=== PATIENT | female | born 1970 ===

== ENCOUNTER 2017-06-18 14:38 | Inpatient (IN) | payer OTHER ==
--- NOTE | 2017-06-18 15:39 | ED PDOC ---
HPI: General Adult Time Seen by Provider: 06/18/17 15:21 Chief Complaint (Nursing): Shortness Of Breath Chief Complaint (Provider): Right arm weakness, headache History Per: Patient History/Exam Limitations: no limitations Onset/Duration Of Symptoms: Hrs Have you had recent travel within the past 21 days to any of the following countries: [place], [place], [place] or [place]?: No Current Symptoms Are (Timing): Still Present Additional History Per: Patient Additional Complaint(s): The patient is a 46yo female with no known past medical history, presents to the ED for evaluation of sudden onset headache and right arm weakness starting 2 hours prior to arrival. Patient reports the weakness in her right arm persists but the headache resolved 5/10 minutes after onset. Patient states she is able to move her arm but still feels mild numbness and weakness; she also reports her right arm is tremulous. She reports associated nausea but contrary to triage note, denies any shortness of breath or chest pain. Patient offers no additional medical complaints. NIHSS Stroke Scale - Date/Time Evaluation Performed Date Performed: 06/18/17 Time Performed: 15:15 When Was NIHSS Performed: Baseline - How Severe is the Stroke Level of Consciousness: 0=Alert LOC to Questions: 0=Both comments correct LOC to commands: 0=Obeys both correctly Best Gaze: 0=Normal Visual: 0=No visual loss Facial: 0=Normal Motor Arm - Left: 0=No drift Motor Arm - Right: 0=No drift Motor Leg - Left: 0=No drift Motor Leg - Right: 0=No drift Limb Ataxia: 0=Absent Sensory: 0=Normal Best Language: 0=No aphasia Dysarthia: 0=Normal articulation Extinction & Inattention (Neglect): 0=Normal, no object Score: 0 Past Medical History Reviewed: Historical Data, Nursing Documentation, Vital Signs Vital Signs: Last Vital Signs Temp 97.9 F 06/20/17 13:00 Pulse 61 06/20/17 13:00 Resp 18 06/20/17 13:00 BP 110/69 06/20/17 13:00 Pulse Ox 97 06/20/17 13:00 - Medical History PMH: No Chronic Diseases, Diabetes (borderline, not currently on medications) - Surgical History Surgical History: - Family History Family History: States: No Known Family Hx, Unknown Family Hx - Social History Current smoker - smoking cessation education provided: No Alcohol: None Drugs: Denies - Home Medications Home Medications: Ambulatory Orders Medication Instructions Recorded [place]-3 Fatty Acids [[place]-3] 2,000 mg PO BID 06/18/17 Cholecalciferol [Vitamin D 1000 IU] 2,000 iu PO DAILY #60 tab 06/20/17 - Allergies Allergies/Adverse Reactions: Allergies Allergy/AdvReac Type Severity Reaction Status Date / Time No Known Allergies Allergy Unverified 05/02/13 11:21 Review of Systems ROS Statement: Except As Marked, All Systems Reviewed And Found Negative Cardiovascular: Negative for: Chest Pain Respiratory: Negative for: Shortness of Breath Gastrointestinal: Positive for: Nausea Musculoskeletal: Positive for: Other (right arm weakness, numbness and tremulous ) Neurological: Positive for: Headache (now resolved) Physical Exam - Reviewed Nursing Documentation Reviewed: Yes Vital Signs Reviewed: Yes - Physical Exam Appears: Positive for: Non-toxic, In Acute Distress Head Exam: Positive for: ATRAUMATIC, NORMOCEPHALIC Skin: Positive for: Warm, Dry Eye Exam: Positive for: EOMI, PERRL ENT: Positive for: Pharynx Is (clear). Negative for: Tonsillar Exudate Neck: Positive for: Painless ROM, Supple Cardiovascular/Chest: Positive for: Regular Rate, Rhythm. Negative for: Murmur Respiratory: Positive for: Normal Breath Sounds. Negative for: Accessory Muscle Use, Wheezing, Respiratory Distress Gastrointestinal/Abdominal: Positive for: Soft. Negative for: Tenderness, Mass , Distended, Guarding Back: Positive for: Normal Inspection. Negative for: Vertebral Tenderness Extremity: Positive for: Normal ROM. Negative for: Pedal Edema, Deformity Lymphatic: Negative for: Adenopathy Neurologic/Psych: Positive for: Alert, media relations coordinator II-XII (intact), Oriented (x3), Mood/ Affect (anxious), Cerebellar Tests (normal). Negative for: Motor/Sensory Deficits, Aphasia - Laboratory Results Result Diagrams: 06/18/17 16:00 06/20/17 05:25 - ECG O2 Sat by Pulse Oximetry: 99 Medical Decision Making Medical Decision Making: Impression: 46yo female with transient right arm weakness, headache Differential: TIA, migraine, anxiety, cervical radiculopathy Plan: -- Labs -- CT Head -- Chest XR Accession No. : [id number] Patient Name / ID : LINNEA ALEXANDER / [id number] Exam Date : 06/18/2017 16:33:46 ( Approved ) Study Comment : Sex / Age : F / 46Y Creator : MARTIN JONES MD Dictator : MARTIN JONES MD Board Certified Family Physician : Manager Presentation : MARTIN JONES MD Approver2 : Report Date : 06/18/2017 16:45:03 My Comment : PROCEDURE: CT HEAD WITHOUT CONTRAST. HISTORY: posterior headache transient RIGHT arm weakness COMPARISON: None available. TECHNIQUE: Axial computed tomography images were obtained through the head/brain without intravenous contrast. Radiation dose: Total exam DLP = 840.63 mGy-cm. This CT exam was performed using one or more of the following dose reduction techniques: Automated exposure control, adjustment of the mA and/or kV according to patient size, and/or use of iterative reconstruction technique. FINDINGS: HEMORRHAGE: No intracranial hemorrhage. BRAIN: [place]-white matter differentiation is preserved. There is no mass, mass effect or abnormal extra-axial fluid collection. VENTRICLES: The ventricles are normal in size, shape and configuration. CALVARIUM: The skull base and calvarium are normal. PARANASAL SINUSES: There is moderate mucoperiosteal thickening in the ethmoid air cells and mild mucosal disease in the frontal and maxillary sinuses. MASTOID AIR CELLS: Predominantly clear. OTHER FINDINGS: None. IMPRESSION: No acute intracranial abnormality. If there is a persistent focal neurologic deficit and an ongoing clinical concern for acute infarction, an MRI of the brain without intravenous contrast would be a more sensitive modality for evaluation of hyperacute/acute ischemic infarction. 1700 Labs reviewed and show high cholesterol and high triglycerides. Patient to be admitted for workup of TIA and possible MS. Labs nd CT findings discussed with patient, as well as plan for admission and patient agrees. Case discussed with Dr. Hines, neurologist internal controls manager. Case discussed with Dr. Rivera, family practice resident. Scribe Attestation: Documented by Lucia Quezada, acting as a scribe for Martha Mireles MD. Provider Scribe Attestation: All medical record entries made by the Scribe were at my direction and personally dictated by me. I have reviewed the chart and agree that the record accurately reflects my personal performance of the history, physical exam, medical decision making, and the department course for this patient. I have also personally directed, reviewed, and agree with the discharge instructions and disposition. Disposition - Clinical Impression Clinical Impression: Weakness of right arm, Headache Counseled Patient/Family Regarding: Studies Performed, Diagnosis - Disposition Disposition Time: 17:00 Condition: FAIR - Pt Status Changed To: Hospital Disposition Of: Observation - POA Present On Arrival: None
[2017-06-18 16:44] LABS: BASO % 0.5 % (0.0-2.0); EOS # 0.2 K/uL (0.0-0.7); EOS % 3.1 % (0.0-4.0); HEMATOCRIT 37.7 % (34.0-47.0); MEAN CELL VOLUME 92.5 fl (81.0-99.0); MEAN CORPUSCULAR HGB CONC 33.5 g/dL (33.0-37.0); MEAN PLATELET VOLUME 9.3 fl (7.2-11.7); MONO # 0.6 K/uL (0.0-0.8); MONO % 8.2 % (0.0-10.0); NEUT # 3.1 K/uL (1.8-7.0); NEUT % 45.2 % (50.0-75.0); NRBC % 0.1 % (0.0-0.0); RED CELL DISTRIBUTION WIDTH 13.5 % (11.5-14.5); WHITE BLOOD COUNT 6.9 K/uL (4.8-10.8)
--- NOTE | 2017-06-18 16:46 | CT ---
PROCEDURE: CT HEAD WITHOUT CONTRAST. HISTORY: posterior headache transient RIGHT arm weakness COMPARISON: None available. TECHNIQUE: Axial computed tomography images were obtained through the head/brain without intravenous contrast. Radiation dose: Total exam DLP = 840.63 mGy-cm. This CT exam was performed using one or more of the following dose reduction techniques: Automated exposure control, adjustment of the mA and/or kV according to patient size, and/or use of iterative reconstruction technique. FINDINGS: HEMORRHAGE: No intracranial hemorrhage. BRAIN: [place]-white matter differentiation is preserved. There is no mass, mass effect or abnormal extra-axial fluid collection. VENTRICLES: The ventricles are normal in size, shape and configuration. CALVARIUM: The skull base and calvarium are normal. PARANASAL SINUSES: There is moderate mucoperiosteal thickening in the ethmoid air cells and mild mucosal disease in the frontal and maxillary sinuses. MASTOID AIR CELLS: Predominantly clear. OTHER FINDINGS: None. IMPRESSION: No acute intracranial abnormality. If there is a persistent focal neurologic deficit and an ongoing clinical concern for acute infarction, an MRI of the brain without intravenous contrast would be a more sensitive modality for evaluation of hyperacute/acute ischemic infarction.
[2017-06-18 16:51] LABS: PARTIAL THROMBOPLASTIN TIME 32.5 Seconds (25.6-37.1)
[2017-06-18 16:53] LABS: ALB/GLOB RATIO 1.2 (1.0-2.1); ALKALINE PHOSPHATASE 89 U/L (38-126); ALT/SGPT 53 U/L (9-52); AST/SGOT 32 U/L (14-36); BILIRUBIN,TOTAL 0.3 mg/dl (0.2-1.3); CALCIUM 9.3 mg/dL (8.4-10.2); CARBON DIOXIDE 26 mmol/L (22-30); CHLORIDE 104 mmol/L (98-107); CHOLESTEROL 201 mg/dL (0-199); GFR AFRICAN-AMERICAN > 60; GLUCOSE,RANDOM 92 mg/dL (65-105); POTASSIUM 3.8 MMOL/L (3.6-5.0); SODIUM 144 mmol/l (132-148)
[2017-06-18 17:01] LABS: URINE BILIRUBIN NEGATIVE (NEGATIVE); URINE BLOOD SMALL (NEGATIVE); URINE COLOR YELLOW (YELLOW); URINE GLUCOSE (UA) NEG (Normal); URINE KETONE NEGATIVE (NEGATIVE); URINE LEUKOCYTE ESTERASE NEG Leu/uL (Negative); URINE PROTEIN NEGATIVE (NEGATIVE); URINE UROBILINOGEN 0.2-1.0 mg/dL (0.2-1.0); WBC URINE 1 /hpf (0-5)
[2017-06-18 17:08] LABS: RBC URINE 15 /hpf (0-3)
[2017-06-18 17:17] LABS: BLOOD UREA NITROGEN 14 mg/dl (7-17)
--- NOTE | 2017-06-18 17:53 | RAD ---
PROCEDURE: CHEST RADIOGRAPH, 1 VIEW HISTORY: headache weakness COMPARISON: None available. FINDINGS: LUNGS: The lungs are well inflated and clear. PLEURA: No pneumothorax or pleural fluid seen. CARDIOVASCULAR: Normal. OSSEOUS STRUCTURES: No significant abnormalities. VISUALIZED UPPER ABDOMEN: Normal. OTHER FINDINGS: None. IMPRESSION: No active pulmonary disease.
[2017-06-18] MEDS ORDERED: Dextrose 50% SYRINGE Inj (50 ml) IV PRN (18:01)
[2017-06-18] MEDS ORDERED: Glucagon Recombinant 1 mg Inj IM PRN (18:01)
--- NOTE | 2017-06-18 18:05 | CP.PCM.HP ---
History of Present Illness - History of Present Illness History of Present Illness: Pt is a 46 y/o female who declines any medical problems but is on metformin, presents to the ED for evaluation of sudden onset headache and right arm weakness starting 2 hours prior to presenting to ED. Patient reports the weakness in her right arm persists but the headache resolved about 10 minutes after it started. Pt is able to move her arm but still feels mild numbness and weakness and feels shakey and heavy. Pt does not have any symptoms denies any chest pain, sob, fever, chills, dizziness, visual changes, abdominal pain or change in bowel habits. PMD: Visit [facility] once in 06/2016, but never return. But seem to be following a different doctor as pt has had multiple labs done in February and March 2017 that does not correlate to an ED visit Present on Admission - Present on Admission Any Indicators Present on Admission: No Review of Systems - Review of Systems All systems: reviewed and no additional remarkable complaints except Past Patient History - Infectious Disease Hx of Infectious Diseases: None - Past Social History Alcohol: None Drugs: Denies - PSYCHIATRIC Hx Substance Use: No - SURGICAL HISTORY Hx Surgeries: Yes Hx Section: Yes Meds Allergies/Adverse Reactions: Allergies Allergy/AdvReac Type Severity Reaction Status Date / Time No Known Allergies Allergy Unverified 05/02/13 11:21 Physical Exam - Constitutional Appears: Non-toxic, No Acute Distress - Head Exam Head Exam: NORMOCEPHALIC - Eye Exam Eye Exam: Normal appearance, PERRL Pupil Exam: NORMAL ACCOMODATION - ENT Exam ENT Exam: Mucous Membranes Moist - Respiratory Exam Respiratory Exam: Clear to Auscultation Bilateral, NORMAL BREATHING PATTERN. absent: Rhonchi, Wheezes - Cardiovascular Exam Cardiovascular Exam: REGULAR RHYTHM, +S1, +S2 - GI/Abdominal Exam GI & Abdominal Exam: Normal Bowel Sounds, Soft. absent: Tenderness - Extremities Exam Extremities exam: Negative for: calf tenderness, joint swelling, pedal edema - Neurological Exam Neurological exam: Alert, CN II-XII Intact, Oriented x3, Reflexes Normal - Expanded Neurological Exam Expanded Cerebellar Function: Finger to Nose: Normal Sensory exam: Lower Extremity 2 Point Discrimination: Normal Neuro motor strength exam: Left Upper Extremity: 5, Right Upper Extremity: 5, Left Lower Extremity: 5, Right Lower Extremity: 5 DTR: Achilles Tendon Left: 2+, Achilles Tendon Right: 2+, Brachioradialis Left: 2+, Brachioradialis Right: 2+, Patellar Left: 2+, Patellar Right: 2+ Results - Vital Signs Recent Vital Signs: Last Vital Signs Temp 97 F L 06/18/17 14:46 Pulse 78 06/18/17 16:00 Resp 14 06/18/17 16:00 BP 128/75 06/18/17 16:00 Pulse Ox 99 06/18/17 17:30 - Labs Result Diagrams: 06/18/17 16:00 06/18/17 16:35 Labs: Laboratory Results - last 24 hr 06/18/17 06/18/17 06/18/17 16:00 16:00 16:00 WBC 6.9 RBC 4.07 Hgb 12.6 Hct 37.7 MCV 92.5 MCH 31.0 MCHC 33.5 RDW 13.5 Plt Count 253 MPV 9.3 Neut % (Auto) 45.2 L Lymph % (Auto) 43.0 H [place] % (Auto) 8.2 Eos % (Auto) 3.1 Baso % (Auto) 0.5 Neut # 3.1 Lymph # 3.0 [place] # 0.6 Eos # 0.2 Baso # 0.0 PT 10.8 INR 1.1 APTT 32.5 Sodium Potassium Chloride Carbon Dioxide Anion Gap BUN Creatinine Est GFR ( Amer) Est GFR (Non-Af Amer) Random Glucose Calcium Total Bilirubin AST ALT Alkaline Phosphatase Troponin I Total Protein Albumin Globulin Albumin/Globulin Ratio Triglycerides Cholesterol LDL Cholesterol Direct HDL Cholesterol Urine Color Urine Clarity Urine pH Ur Specific [place] Urine Protein Urine Glucose (UA) Urine Ketones Urine Blood Urine Nitrate Urine Bilirubin Urine Urobilinogen Ur Leukocyte Esterase Urine RBC (Auto) Urine Microscopic WBC Ur Squamous Epith Cells Urine Opiates Screen Urine Methadone Screen Ur Barbiturates Screen Ur Phencyclidine Scrn Ur Amphetamines Screen U Benzodiazepines Scrn U Oth Cocaine Metabols U Cannabinoids Screen Blood Type O POSITIVE Antibody Screen Negative BBK History Checked Patient has bt 06/18/17 06/18/17 06/18/17 16:00 16:35 16:35 WBC RBC Hgb Hct MCV MCH MCHC RDW Plt Count MPV Neut % (Auto) Lymph % (Auto) [place] % (Auto) Eos % (Auto) Baso % (Auto) Neut # Lymph # [place] # Eos # Baso # PT INR APTT Sodium 144 Potassium 3.8 Chloride 104 Carbon Dioxide 26 Anion Gap 18 BUN 14 Creatinine 0.7 Est GFR ( Amer) > 60 Est GFR (Non-Af Amer) > 60 Random Glucose 92 Calcium 9.3 Total Bilirubin 0.3 AST 32 ALT 53 H D Alkaline Phosphatase 89 Troponin I < 0.0120 Total Protein 8.0 Albumin 4.3 Globulin 3.6 Albumin/Globulin Ratio 1.2 Triglycerides 187 H Cholesterol 201 H LDL Cholesterol Direct 134 H HDL Cholesterol 39 Urine Color Yellow Urine Clarity Clear Urine pH 7.0 Ur Specific [place] 1.017 Urine Protein Negative Urine Glucose (UA) Neg Urine Ketones Negative Urine Blood Small Urine Nitrate Negative Urine Bilirubin Negative Urine Urobilinogen 0.2-1.0 Ur Leukocyte Esterase Neg Urine RBC (Auto) 15 H Urine Microscopic WBC 1 Ur Squamous Epith Cells 3 Urine Opiates Screen Negative Urine Methadone Screen Negative Ur Barbiturates Screen Negative Ur Phencyclidine Scrn Negative Ur Amphetamines Screen Negative U Benzodiazepines Scrn Negative U Oth Cocaine Metabols Negative U Cannabinoids Screen Negative Blood Type Antibody Screen BBK History Checked Assessment & Plan - Assessment and Plan (Free Text) Assessment: 46 y/o female with pmhx of type II diabetes being admitted for TIA Plan: 1. TIA admit to tele pt started on Aspirin 81mg daily lipid panel border line elevated cbc wnl. cmp wnl EKG no concerning changes CT negative for hemorrhage Of note: through chart review, pt had TSH levels drawn 02/2017 and 03/2017 for which the results are as follows TSH - 5.16 (03/17/17) TSH- 5.38 (04/20/17) , given these results TSH + T4 has been ordered, f/u There is no evidence pt was on thyroid medication and it is not clear who ordered the previous TSH Neurology consulted by ED physician, f/u recommendations 2. Non-Insulin Dependent Diabetic- Controlled Last A1C 6.4 (02/2017) A1C ordered by ED physician f/u results Pt on Metformin 500mg QPM ACHS low SSI Hepatic panel - Negative (04/20/17) 3. Diet- Diabetic Heart Healthy 4. DVT prophylaxis- Lovenox 40mg daily
[2017-06-18] MEDS: Insulin Regular 100 units/ml SC SCH (22:16)
[2017-06-19 06:11] LABS: T4 6.48 ug/dl (5.5-11.0)
[2017-06-19 06:25] LABS: THYROID STIMULATING HORMONE 10.6 mIU/ML (0.46-4.68)
[2017-06-19] MEDS: Insulin Regular 100 units/ml SC SCH ×4 (07:37→22:37)
--- NOTE | 2017-06-19 08:46 | CP.PCM.PN ---
Subjective - Date & Time of Evaluation Date of Evaluation: 06/19/17 Time of Evaluation: 08:30 - Subjective Subjective: Pt seen and examined this morning. Pt reports her occipital headache has improved. Reports some weakness in right arm but denies numbness or tingling. Denies chest pain, dizziness, blurry vision, nausea, vomiting, bowel/bladder dysfunction and any other focal deficit. Denies any hx similar headache in the past. Denies hx migraine. Tolerating PO food and fluids. Has normal BM and voiding. Objective - Vital Signs/Intake and Output Vital Signs (last 24 hours): Temp Pulse Resp BP Pulse Ox 97.0 F L 52 L 16 109/64 96 06/18/17 18:51 06/19/17 05:32 06/19/17 05:32 06/19/17 05:32 06/19/17 05:32 - Medications Medications: Current Medications Aspirin (Aspirin Chewable) 81 mg PO DAILY [facility] Atorvastatin Calcium (Lipitor) 40 mg PO DAILY [facility] Dextrose (Dextrose 50% Inj) 0 ml IV STAT PRN; Protocol PRN Reason: Hyglycemia Protocol Dextrose (Glutose 15) 0 gm PO ONCE PRN; Protocol PRN Reason: Hypoglycemia Protocol Enoxaparin Sodium (Lovenox) 40 mg SC DAILY [facility] PRN Reason: Protocol Glucagon (Glucagen Diagnostic Kit) 0 mg IM STAT PRN; Protocol PRN Reason: Hypoglycemia Protocol Insulin Human Regular (Humulin R) 0 units SC ACHS [facility] PRN Reason: Protocol Last Admin: 06/19/17 07:37 Dose: Not Given Metformin HCl (Glucophage) 500 mg PO QPM [facility] Last Admin: 06/18/17 19:24 Dose: 500 mg - Labs Labs: 06/18/17 16:00 06/18/17 16:35 PT 10.8 Seconds (9.8-13.1) 06/18/17 16:00 INR 1.1 (0.9-1.2) 06/18/17 16:00 APTT 32.5 Seconds (25.6-37.1) 06/18/17 16:00 - Constitutional Appears: Well, No Acute Distress - Head Exam Head Exam: ATRAUMATIC, NORMAL INSPECTION - ENT Exam ENT Exam: Mucous Membranes Moist - Neck Exam Neck Exam: Normal Inspection - Respiratory Exam Respiratory Exam: Clear to Ausculation Bilateral. absent: Rales, Rhonchi, Wheezes - Cardiovascular Exam Cardiovascular Exam: REGULAR RHYTHM, RRR, +S1, +S2 - GI/Abdominal Exam GI & Abdominal Exam: Soft, Normal Bowel Sounds. absent: Tenderness - Extremities Exam Extremities Exam: Normal Capillary Refill, Normal Inspection. absent: Calf Tenderness, Pedal Edema - Neurological Exam Neurological Exam: Alert, Awake, CN II-XII Intact, Normal Gait, Oriented x3, Reflexes Normal. absent: Motor Sensory Deficit Neuro motor strength exam: Left Upper Extremity: 5, Right Upper Extremity: 5, Left Lower Extremity: 5, Right Lower Extremity: 5 - Psychiatric Exam Psychiatric exam: Normal Affect, Normal Mood Assessment and Plan - Assessment and Plan (Free Text) Assessment: Assessment and plan: 46 yo female PMH DMII is admitted to telemetry for headache and right arm weakness. 1. TIA vs. complicated mirgraine -Continue Aspirin 81 mg PO daily -Start atorvastatin 40 mg PO daily( will cont. until MRI report) -lipid panel:TC 201, TG 187, LDL 134, HDL 39. -EKG no concerning changes -CT HEAD: No acute intracranial abnormality. -Neurology consult appreciated and f/u recommendation. -F/U MRI of brain -F/U MRA head/neck -PT/OT eval. -f/u vitamin D, folate and B12. 2. Non-Insulin Dependent Diabetic- Controlled -HbA1C: 6.1 on 06/18/17 -HbA1C: 6.4 on 02/2017 -Hold Metformin 500mg QPM -AC[facility] -low SSI 3. Elevated TSH: -no hx hypothyroidism. -TSH 10.6 and T4 is 6.48 on 06/19/17 -f/u free T4. -TSH- 5.38 on 04/20/17 Hepatic panel - Negative (04/20/17) 4. DVT prophylaxis - Lovenox 40mg daily 5. Diet -Diabetic Heart Healthy
[2017-06-19] MEDS: Enoxaparin 40 mg Syringe SC SCH (09:12)
--- NOTE | 2017-06-19 13:35 | CP.PCM.CON ---
History of Present Illness - History of Present Illness History of Present Illness: Mrs. Farrell is a 46-year-old woman with a past medical history of diabetes, who states that she developed on occipital headache, that has a quality of pulsations and was associated with nausea. The headache, was severe at first, but today is improved. She became concerned when she developed right upper extremity numbness and weakness. As a result, she presented to the ED. She had an initial NIHSS of 0. She had a subjective numbness on the right side, but no focal neurologic deficits otherwise. Today, she denies nausea, vomiting , visual changes, chest pain, SOB, new weakness or any other associated symptoms. Her headache remains, but is moderate in severity. She has not received any pain medication today. Review of Systems - Review of Systems All systems: reviewed and no additional remarkable complaints except Past Patient History - Infectious Disease Hx of Infectious Diseases: None - Past Social History Alcohol: None Drugs: Denies - CARDIAC Hx Cardiac Disorders: No - PULMONARY Hx Respiratory Disorders: No - NEUROLOGICAL Hx Neurological Disorder: No - HEENT Hx HEENT Problems: No - RENAL Hx Chronic Kidney Disease: No - ENDOCRINE/METABOLIC Hx Endocrine Disorders: Yes - HEMATOLOGICAL/ONCOLOGICAL Hx Blood Disorders: No - INTEGUMENTARY Hx Dermatological Problems: No - MUSCULOSKELETAL/RHEUMATOLOGICAL Hx Musculoskeletal Disorders: No - GASTROINTESTINAL Hx Gastrointestinal Disorders: No - GENITOURINARY/GYNECOLOGICAL Hx Genitourinary Disorders: No - PSYCHIATRIC Hx Substance Use: No - SURGICAL HISTORY Hx Surgeries: Yes Hx Section: Yes - ANESTHESIA Hx Anesthesia: No Meds Allergies/Adverse Reactions: Allergies Allergy/AdvReac Type Severity Reaction Status Date / Time No Known Allergies Allergy Unverified 05/02/13 11:21 - Medications Medications: Current Medications Aspirin (Aspirin Chewable) 81 mg PO DAILY [facility] Last Admin: 06/19/17 09:12 Dose: 81 mg Atorvastatin Calcium (Lipitor) 40 mg PO DAILY [facility] Last Admin: 06/19/17 09:12 Dose: 40 mg Dextrose (Dextrose 50% Inj) 0 ml IV STAT PRN; Protocol PRN Reason: Hyglycemia Protocol Dextrose (Glutose 15) 0 gm PO ONCE PRN; Protocol PRN Reason: Hypoglycemia Protocol Enoxaparin Sodium (Lovenox) 40 mg SC DAILY [facility] PRN Reason: Protocol Last Admin: 06/19/17 09:12 Dose: 40 mg Glucagon (Glucagen Diagnostic Kit) 0 mg IM STAT PRN; Protocol PRN Reason: Hypoglycemia Protocol Insulin Human Regular (Humulin R) 0 units SC ACHS [facility] PRN Reason: Protocol Last Admin: 06/19/17 07:37 Dose: Not Given Metformin HCl (Glucophage) 500 mg PO QPM [facility] Last Admin: 06/18/17 19:24 Dose: 500 mg Physical Exam - Constitutional Appears: Well - Head Exam Head Exam: ATRAUMATIC, NORMAL INSPECTION, NORMOCEPHALIC - Eye Exam Eye Exam: EOMI, Normal appearance, PERRL Pupil Exam: PERRL - ENT Exam ENT Exam: Mucous Membranes Moist, Normal Exam - Neck Exam Neck exam: Positive for: Normal Inspection - Respiratory Exam Respiratory Exam: Clear to Auscultation Bilateral, NORMAL BREATHING PATTERN - Cardiovascular Exam Cardiovascular Exam: REGULAR RHYTHM, +S1, +S2 - GI/Abdominal Exam GI & Abdominal Exam: Normal Bowel Sounds, Soft. absent: Tenderness - Rectal Exam Rectal Exam: Deferred - Extremities Exam Extremities exam: Positive for: normal inspection Additional comments: complains of pain in left calf, no erythema, or tenderness to palpation. - Back Exam Back exam: NORMAL INSPECTION - Neurological Exam Neurological exam: Alert, CN II-XII Intact, Normal Gait, Oriented x3, Reflexes Normal - Expanded Neurological Exam Expanded Patient oriented to: person, place, time Cranial nerves: EOM's Intact: Normal, Facial Sensation: Normal Ataxia: No Cerebellar Function: Finger to Nose: Normal Upper motor neuron: Pronator Drift: Normal Sensory exam: Lower Extremity Light Touch: Normal, Lower Extremity Pin Prick: Normal, Upper Extremity 2 Point Discrimination: Normal, Upper Extremity Light Touch: Normal Neuro motor strength exam: Left Upper Extremity: 5, Right Upper Extremity: 5, Left Lower Extremity: 5, Right Lower Extremity: 5 DTR: Achilles Tendon Left: 2+, Achilles Tendon Right: 2+, Bicep Left: 2+, Bicep Right: 2+, Brachioradialis Left: 2+, Brachioradialis Right: 2+, Patellar Left: 2 +, Patellar Right: 2+, Tricep Left: 2+, Tricep Right: 2+ - Psychiatric Exam Psychiatric exam: Normal Affect, Normal Mood - Skin Skin Exam: Dry, Intact, Normal Color, Warm Results - Vital Signs Recent Vital Signs: Last Vital Signs Temp 98.2 F 06/19/17 12:00 Pulse 56 L 09/26/17 12:00 Resp 18 06/19/17 12:00 BP 106/65 06/19/17 12:00 Pulse Ox 100 06/19/17 12:00 - Labs Result Diagrams: 06/18/17 16:00 06/18/17 16:35 Labs: Laboratory Results - last 24 hr 06/18/17 06/18/17 06/18/17 15:27 16:00 16:00 WBC 6.9 RBC 4.07 Hgb 12.6 Hct 37.7 MCV 92.5 MCH 31.0 MCHC 33.5 RDW 13.5 Plt Count 253 MPV 9.3 Neut % (Auto) 45.2 L Lymph % (Auto) 43.0 H Towns % (Auto) 8.2 Eos % (Auto) 3.1 Baso % (Auto) 0.5 Neut # 3.1 Lymph # 3.0 Towns # 0.6 Eos # 0.2 Baso # 0.0 PT INR APTT Sodium Potassium Chloride Carbon Dioxide Anion Gap BUN Creatinine Est GFR ( Amer) Est GFR (Non-Af Amer) POC Glucose (mg/dL) 146 H Random Glucose Hemoglobin A1c 6.2 Calcium Total Bilirubin AST ALT Alkaline Phosphatase Troponin I Total Protein Albumin Globulin Albumin/Globulin Ratio Triglycerides Cholesterol LDL Cholesterol Direct HDL Cholesterol Thyroxine (T4) TSH 3rd Generation Urine Color Urine Clarity Urine pH Ur Specific [place] Urine Protein Urine Glucose (UA) Urine Ketones Urine Blood Urine Nitrate Urine Bilirubin Urine Urobilinogen Ur Leukocyte Esterase Urine RBC (Auto) Urine Microscopic WBC Ur Squamous Epith Cells Urine Opiates Screen Urine Methadone Screen Ur Barbiturates Screen Ur Phencyclidine Scrn Ur Amphetamines Screen U Benzodiazepines Scrn U Oth Cocaine Metabols U Cannabinoids Screen Blood Type Antibody Screen BBK History Checked 06/18/17 06/18/17 06/18/17 16:00 16:00 16:00 WBC RBC Hgb Hct MCV MCH MCHC RDW Plt Count MPV Neut % (Auto) Lymph % (Auto) [place] % (Auto) Eos % (Auto) Baso % (Auto) Neut # Lymph # Towns # Eos # Baso # PT 10.8 INR 1.1 APTT 32.5 Sodium Potassium Chloride Carbon Dioxide Anion Gap BUN Creatinine Est GFR ( Amer) Est GFR (Non-Af Amer) POC Glucose (mg/dL) Random Glucose Hemoglobin A1c Calcium Total Bilirubin AST ALT Alkaline Phosphatase Troponin I Total Protein Albumin Globulin Albumin/Globulin Ratio Triglycerides Cholesterol LDL Cholesterol Direct HDL Cholesterol Thyroxine (T4) TSH 3rd Generation Urine Color Yellow Urine Clarity Clear Urine pH 7.0 Ur Specific [place] 1.017 Urine Protein Negative Urine Glucose (UA) Neg Urine Ketones Negative Urine Blood Small Urine Nitrate Negative Urine Bilirubin Negative Urine Urobilinogen 0.2-1.0 Ur Leukocyte Esterase Neg Urine RBC (Auto) 15 H Urine Microscopic WBC 1 Ur Squamous Epith Cells 3 Urine Opiates Screen Urine Methadone Screen Ur Barbiturates Screen Ur Phencyclidine Scrn Ur Amphetamines Screen U Benzodiazepines Scrn U Oth Cocaine Metabols U Cannabinoids Screen Blood Type O POSITIVE Antibody Screen Negative BBK History Checked Patient has bt 06/18/17 06/18/17 06/18/17 16:35 16:35 21:25 WBC RBC Hgb Hct MCV MCH MCHC RDW Plt Count MPV Neut % (Auto) Lymph % (Auto) [place] % (Auto) Eos % (Auto) Baso % (Auto) Neut # Lymph # Town[place] # Eos # Baso # PT INR APTT Sodium 144 Potassium 3.8 Chloride 104 Carbon Dioxide 26 Anion Gap 18 BUN 14 Creatinine 0.7 Est GFR ( Amer) > 60 Est GFR (Non-Af Amer) > 60 POC Glucose (mg/dL) 94 Random Glucose 92 Hemoglobin A1c Calcium 9.3 Total Bilirubin 0.3 AST 32 ALT 53 H D Alkaline Phosphatase 89 Troponin I < 0.0120 Total Protein 8.0 Albumin 4.3 Globulin 3.6 Albumin/Globulin Ratio 1.2 Triglycerides 187 H Cholesterol 201 H LDL Cholesterol Direct 134 H HDL Cholesterol 39 Thyroxine (T4) TSH 3rd Generation Urine Color Urine Clarity Urine pH Ur Specific [place] Urine Protein Urine Glucose (UA) Urine Ketones Urine Blood Urine Nitrate Urine Bilirubin Urine Urobilinogen Ur Leukocyte Esterase Urine RBC (Auto) Urine Microscopic WBC Ur Squamous Epith Cells Urine Opiates Screen Negative Urine Methadone Screen Negative Ur Barbiturates Screen Negative Ur Phencyclidine Scrn Negative Ur Amphetamines Screen Negative U Benzodiazepines Scrn Negative U Oth Cocaine Metabols Negative U Cannabinoids Screen Negative Blood Type Antibody Screen BBK History Checked 06/19/17 06/19/17 06/19/17 05:30 12:18 13:12 WBC RBC Hgb Hct MCV MCH MCHC RDW Plt Count MPV Neut % (Auto) Lymph % (Auto) [place] % (Auto) Eos % (Auto) Baso % (Auto) Neut # Lymph # Towns # Eos # Baso # PT INR APTT Sodium Potassium Chloride Carbon Dioxide Anion Gap BUN Creatinine Est GFR ( Amer) Est GFR (Non-Af Amer) POC Glucose (mg/dL) 55 L 112 H Random Glucose Hemoglobin A1c Calcium Total Bilirubin AST ALT Alkaline Phosphatase Troponin I Total Protein Albumin Globulin Albumin/Globulin Ratio Triglycerides Cholesterol LDL Cholesterol Direct HDL Cholesterol Thyroxine (T4) 6.48 TSH 3rd Generation 10.60 H Urine Color Urine Clarity Urine pH Ur Specific [place] Urine Protein Urine Glucose (UA) Urine Ketones Urine Blood Urine Nitrate Urine Bilirubin Urine Urobilinogen Ur Leukocyte Esterase Urine RBC (Auto) Urine Microscopic WBC Ur Squamous Epith Cells Urine Opiates Screen Urine Methadone Screen Ur Barbiturates Screen Ur Phencyclidine Scrn Ur Amphetamines Screen U Benzodiazepines Scrn U Oth Cocaine Metabols U Cannabinoids Screen Blood Type Antibody Screen BBK History Checked - Imaging and Cardiology CT scan - head Status: Image reviewed by me, Report reviewed by me (Normal CT head.) Assessment & Plan (1) Complicated migraine Assessment and Plan: Will evaluate for any underlying pathology with an MRI of the brain, and perform vascular studies with MRA of the head/neck. Continue aspirin 81 mg daily. Will treat the headache with magnesium sulfate 2 grams IV once, and decadron 10 mg IV once. Furthermore, I recommend telemetry, PT/OT eval, DVT px. Thank you. Status: Acute Priority: High
[2017-06-19] MEDS ORDERED: Magnesium Sulfate 2 gm/50 ml 2 GM/50 ML BAG IVPB ONE (13:36)
[2017-06-19] MEDS ORDERED: Dexamethasone 10 MG in Sodium Chloride 0.9% 50 ML IVPB ONE (13:36)
[2017-06-19] MEDS ORDERED: Influenza Vaccine 18yr & older 0.5 ML/45 MCG SYR IM ONE (15:37)
[2017-06-19 19:40] VITALS: RESP 18
[2017-06-20] MEDS: Insulin Regular 100 units/ml SC SCH ×2 (06:38→11:54)
[2017-06-20 06:39] LABS: BLOOD UREA NITROGEN 18 mg/dl (7-17); CALCIUM 9.5 mg/dL (8.4-10.2); CARBON DIOXIDE 26 mmol/L (22-30); CHLORIDE 104 mmol/L (98-107); GFR AFRICAN-AMERICAN > 60; GLUCOSE,RANDOM 118 mg/dL (65-105); POTASSIUM 4.3 MMOL/L (3.6-5.0); SODIUM 143 mmol/l (132-148)
[2017-06-20 08:25] VITALS: PULSE 61
--- NOTE | 2017-06-20 08:25 | CP.PCM.PN ---
Subjective - Date & Time of Evaluation Date of Evaluation: 06/20/17 Time of Evaluation: 08:15 Objective - Vital Signs/Intake and Output Vital Signs (last 24 hours): Temp Pulse Resp BP Pulse Ox 97.8 F 58 L 18 94/57 L 99 06/20/17 04:47 06/20/17 04:47 06/20/17 04:47 06/20/17 04:47 06/20/17 04:47 - Medications Medications: Current Medications Acetaminophen (Tylenol 325mg Tab) 650 mg PO Q6 PRN PRN Reason: Headache Aspirin (Aspirin Chewable) 81 mg PO DAILY [facility] Last Admin: 06/19/17 09:12 Dose: 81 mg Atorvastatin Calcium (Lipitor) 40 mg PO DAILY [facility] Last Admin: 06/19/17 09:12 Dose: 40 mg Cholecalciferol (Vitamin D) 2,000 iu PO DAILY [facility] Dextrose (Dextrose 50% Inj) 0 ml IV STAT PRN; Protocol PRN Reason: Hyglycemia Protocol Dextrose (Glutose 15) 0 gm PO ONCE PRN; Protocol PRN Reason: Hypoglycemia Protocol Enoxaparin Sodium (Lovenox) 40 mg SC DAILY [facility] PRN Reason: Protocol Last Admin: 06/19/17 09:12 Dose: 40 mg Glucagon (Glucagen Diagnostic Kit) 0 mg IM STAT PRN; Protocol PRN Reason: Hypoglycemia Protocol Insulin Human Regular (Humulin R) 0 units SC ACHS [facility] PRN Reason: Protocol Last Admin: 06/20/17 06:38 Dose: Not Given Metformin HCl (Glucophage) 500 mg PO QPM [facility] Last Admin: 06/18/17 19:24 Dose: 500 mg - Labs Labs: 06/18/17 16:00 06/20/17 05:25 PT 10.8 Seconds (9.8-13.1) 06/18/17 16:00 INR 1.1 (0.9-1.2) 06/18/17 16:00 APTT 32.5 Seconds (25.6-37.1) 06/18/17 16:00
[2017-06-20] MEDS: Enoxaparin 40 mg Syringe SC SCH (09:02)
--- NOTE | 2017-06-20 10:40 | CP.PCM.PN ---
Subjective - Date & Time of Evaluation Date of Evaluation: 06/20/17 Time of Evaluation: 10:37 - Subjective Subjective: Ms. Rossi was seen and examined at the bedside. She denies any headache, right arm weakness, numbness, dizziness, gait instability. She refused MRI of the brain, and MRA of the head/neck. According to the patient, she has claustrophobia.There was no untoward events overnight. She is not on any acute distress. Objective - Vital Signs/Intake and Output Vital Signs (last 24 hours): Temp Pulse Resp BP Pulse Ox 97.8 F 61 18 93/50 L 97 06/20/17 08:00 06/20/17 08:00 06/20/17 08:00 06/20/17 08:00 06/20/17 08:00 - Medications Medications: Current Medications Acetaminophen (Tylenol 325mg Tab) 650 mg PO Q6 PRN PRN Reason: Headache Aspirin (Aspirin Chewable) 81 mg PO DAILY [facility] Last Admin: 06/20/17 09:01 Dose: 81 mg Atorvastatin Calcium (Lipitor) 40 mg PO DAILY [facility] Last Admin: 06/20/17 09:02 Dose: 40 mg Cholecalciferol (Vitamin D) 2,000 iu PO DAILY [facility] Dextrose (Dextrose 50% Inj) 0 ml IV STAT PRN; Protocol PRN Reason: Hyglycemia Protocol Dextrose (Glutose 15) 0 gm PO ONCE PRN; Protocol PRN Reason: Hypoglycemia Protocol Enoxaparin Sodium (Lovenox) 40 mg SC DAILY [facility] PRN Reason: Protocol Last Admin: 06/20/17 09:02 Dose: 40 mg Glucagon (Glucagen Diagnostic Kit) 0 mg IM STAT PRN; Protocol PRN Reason: Hypoglycemia Protocol Insulin Human Regular (Humulin R) 0 units SC ACHS [facility] PRN Reason: Protocol Last Admin: 06/20/17 06:38 Dose: Not Given Metformin HCl (Glucophage) 500 mg PO QPM [facility] Last Admin: 06/18/17 19:24 Dose: 500 mg - Labs Labs: 06/18/17 16:00 06/20/17 05:25 PT 10.8 Seconds (9.8-13.1) 06/18/17 16:00 INR 1.1 (0.9-1.2) 06/18/17 16:00 APTT 32.5 Seconds (25.6-37.1) 06/18/17 16:00 - Constitutional Appears: Well - Head Exam Head Exam: ATRAUMATIC, NORMAL INSPECTION, NORMOCEPHALIC - Neurological Exam Neurological Exam: Alert, Awake, CN II-XII Intact, Normal Gait, Oriented x3 Neuro motor strength exam: Left Upper Extremity: 5, Right Upper Extremity: 5, Left Lower Extremity: 5, Right Lower Extremity: 5 Additional comments: Neurological examination improved form previous examination. There is no more blurry vision and any weakness or numbness of any extremities. Assessment and Plan (1) Complicated migraine Assessment & Plan: Case discussed with Dr. Hines, still recommending MRI of the brain, and perform vascular studies with MRA of the head/neck. It will be performed as an outpatient in an open MRI facility. continue medical, physical, and occupational therapies. Status: Acute
--- NOTE | 2017-06-20 11:16 | CARD ---
APPROVED REPORT EKG Measurement Heart [id number] <Conclusion> Normal sinus rhythm Normal ECG
[2017-06-20 12:17] VITALS: BP 110/69; TEMP 97.9
[2017-06-20 14:19] VITALS: O2SAT 99
[2017-06-20 18:07] LABS: FOLATE 8.3 ng/mL
--- NOTE | 2017-06-21 13:07 | CP.PCM.DIS ---
Provider - Provider Date of Admission: 06/19/17 15:08 Attending physician: Jannette Feliz MD Primary care physician: Clinic in [place]( unable to recall PCP). Visited [facility] in 06/2016. Consults: Neurologist: Dr. Hines Time Spent in preparation of Discharge (in minutes): 40 Diagnosis - Discharge Diagnosis (1) Complicated migraine Status: Resolved Priority: High (2) Headache Status: Resolved (3) Weakness of right arm Status: Resolved Hospital Course - Lab Results Lab Results: Most Recent Lab Values WBC 6.9 K/uL (4.8-10.8) 06/18/17 16:00 RBC 4.07 Mil/uL (3.80-5.20) 06/18/17 16:00 Hgb 12.6 g/dL (12.0-16.0) 06/18/17 16:00 Hct 37.7 % (34.0-47.0) 06/18/17 16:00 MCV 92.5 fl (81.0-99.0) 06/18/17 16:00 MCH 31.0 pg (27.0-31.0) 06/18/17 16:00 MCHC 33.5 g/dL (33.0-37.0) 06/18/17 16:00 RDW 13.5 % (11.5-14.5) 06/18/17 16:00 Plt Count 253 K/uL (130-400) 06/18/17 16:00 MPV 9.3 fl (7.2-11.7) 06/18/17 16:00 Neut % (Auto) 45.2 % (50.0-75.0) L 06/18/17 16:00 Lymph % (Auto) 43.0 % (20.0-40.0) H 06/18/17 16:00 [place] % (Auto) 8.2 % (0.0-10.0) 06/18/17 16:00 Eos % (Auto) 3.1 % (0.0-4.0) 06/18/17 16:00 Baso % (Auto) 0.5 % (0.0-2.0) 06/18/17 16:00 Neut # 3.1 K/uL (1.8-7.0) 06/18/17 16:00 Lymph # 3.0 K/uL (1.0-4.3) 06/18/17 16:00 [place] # 0.6 K/uL (0.0-0.8) 06/18/17 16:00 Eos # 0.2 K/uL (0.0-0.7) 06/18/17 16:00 Baso # 0.0 K/uL (0.0-0.2) 06/18/17 16:00 PT 10.8 Seconds (9.8-13.1) 06/18/17 16:00 INR 1.1 (0.9-1.2) 06/18/17 16:00 APTT 32.5 Seconds (25.6-37.1) 06/18/17 16:00 Sodium 143 mmol/l (132-148) 06/20/17 05:25 Potassium 4.3 MMOL/L (3.6-5.0) 06/20/17 05:25 Chloride 104 mmol/L (98-107) 06/20/17 05:25 Carbon Dioxide 26 mmol/L (22-30) 06/20/17 05:25 Anion Gap 18 (10-20) 06/20/17 05:25 BUN 18 mg/dl (7-17) H 06/20/17 05:25 Creatinine 0.7 mg/dL (0.7-1.2) 06/20/17 05:25 Est GFR ( Amer) > 60 06/20/17 05:25 Est GFR (Non-Af Amer) > 60 06/20/17 05:25 POC Glucose (mg/dL) 88 mg/dL (65-110) 06/20/17 10:59 Random Glucose 118 mg/dL (65-105) H 06/20/17 05:25 Hemoglobin A1c 6.2 % (4.2-6.5) 06/18/17 16:00 Calcium 9.5 mg/dL (8.4-10.2) 06/20/17 05:25 Total Bilirubin 0.3 mg/dl (0.2-1.3) 06/18/17 16:35 AST 32 U/L (14-36) 06/18/17 16:35 ALT 53 U/L (9-52) H D 06/18/17 16:35 Alkaline Phosphatase 89 U/L (38-126) 06/18/17 16:35 Troponin I < 0.0120 ng/mL (0.00-0.120) 06/18/17 16:35 Total Protein 8.0 G/DL (6.3-8.2) 06/18/17 16:35 Albumin 4.3 g/dL (3.5-5.0) 06/18/17 16:35 Globulin 3.6 gm/dL (2.2-3.9) 06/18/17 16:35 Albumin/Globulin Ratio 1.2 (1.0-2.1) 06/18/17 16:35 Triglycerides 187 mg/DL (0-149) H 06/18/17 16:35 Cholesterol 201 mg/dL (0-199) H 06/18/17 16:35 LDL Cholesterol Direct 134 mg/dL (0-129) H 06/18/17 16:35 HDL Cholesterol 39 MG/DL (30-70) 06/18/17 16:35 Vitamin B12 390 pg/mL (239-931) 06/19/17 12:38 25-OH Vitamin D Total 19.9 NG/ML (30.0-100.0) L 06/19/17 12:38 Folate 8.3 ng/mL 06/19/17 12:38 Free T4 1.10 ng/dL (0.78-2.19) 06/19/17 12:38 Thyroxine (T4) 6.48 ug/dl (5.5-11.0) 06/19/17 05:30 TSH 3rd Generation 10.60 mIU/ML (0.46-4.68) H 06/19/17 05:30 Urine Color Yellow (YELLOW) 06/18/17 16:00 Urine Clarity Clear (Clear) 06/18/17 16:00 Urine pH 7.0 (5.0-8.0) 06/18/17 16:00 Ur Specific [place] 1.017 (1.003-1.030) 06/18/17 16:00 Urine Protein Negative mg/dL (NEGATIVE) 06/18/17 16:00 Urine Glucose (UA) Neg mg/dL (Normal) 06/18/17 16:00 Urine Ketones Negative mg/dL (NEGATIVE) 06/18/17 16:00 Urine Blood Small (NEGATIVE) 06/18/17 16:00 Urine Nitrate Negative (NEGATIVE) 06/18/17 16:00 Urine Bilirubin Negative (NEGATIVE) 06/18/17 16:00 Urine Urobilinogen 0.2-1.0 mg/dL (0.2-1.0) 06/18/17 16:00 Ur Leukocyte Esterase Neg Abd[place]/uL (Negative) 06/18/17 16:00 Urine RBC (Auto) 15 /hpf (0-3) H 06/18/17 16:00 Urine Microscopic WBC 1 /hpf (0-5) 06/18/17 16:00 Ur Squamous Epith Cells 3 /hpf (0-5) 06/18/17 16:00 Urine Opiates Screen Negative (NEGATIVE) 06/18/17 16:35 Urine Methadone Screen Negative (NEGATIVE) 06/18/17 16:35 Ur Barbiturates Screen Negative (NEGATIVE) 06/18/17 16:35 Ur Phencyclidine Scrn Negative (NEGATIVE) 06/18/17 16:35 Ur Amphetamines Screen Negative (NEGATIVE) 06/18/17 16:35 U Benzodiazepines Scrn Negative (NEGATIVE) 06/18/17 16:35 U Oth Cocaine Metabols Negative (NEGATIVE) 06/18/17 16:35 U Cannabinoids Screen Negative (NEGATIVE) 06/18/17 16:35 HIV 1&2 Antibody Screen Negative (NEGATIVE) 06/19/17 12:38 Blood Type O POSITIVE 06/18/17 16:00 Antibody Screen Negative 06/18/17 16:00 BBK History Checked Patient has bt 06/18/17 16:00 - Hospital Course Hospital Course: 46 year old female with PMH ?prediabetes on metformin presented to [facility] ED on with sudden onset of occipital headache, right arm weakness and nausea of several hours. Pt was admitted to inpatient to r/o TIA/stroke. CT head shows no intracranial abnormality. EKG and MINE GEOLOGIST was unremarkable. Neurologist Dr. Hines was consulted. Pt was diagnosed with complicated migraine and received 2 gm IV magnesium sulfate once and decadron 10 mg IV once. MRI of brain and MRA of head/ neck were ordered to r/o any underlying vascular pathology. Pt states she has hx claustrophobia. Pt was offered ativan to reduce anxiety during MRI/MRA but she declined. Pt's headache and right arm weakness resolved and pt wanted to go home. Pt was given rx for MRI of head to do outpatient in an open MRI facility and f/u with PCP. Among labs, pt had low vitamin D (19.1) and was given vitamin D 2000 units po daily #60. Pt's TSH 10.6, T4 was 6.48 and free T4 was 1.1. Pt has appointment with Dr. Rai on 06/29/17 at 9:40 am. Discharge Exam - Head Exam Head Exam: ATRAUMATIC, NORMAL INSPECTION, NORMOCEPHALIC - Eye Exam Eye Exam: Normal appearance Pupil Exam: NORMAL ACCOMODATION, PERRL - ENT Exam ENT Exam: Mucous Membranes Moist - Neck Exam Neck exam: Normal Inspection - Respiratory Exam Respiratory Exam: Clear to PA & Lateral, NORMAL BREATHING PATTERN. absent: Rhonchi, Wheezes, Respiratory Distress - Cardiovascular Exam Cardiovascular Exam: REGULAR RHYTHM, RRR, +S1, +S2 - GI/Abdominal Exam GI & Abdominal Exam: Normal Bowel Sounds, Soft. absent: Tenderness - Extremities Exam Extremities exam: normal capillary refill, normal inspection, pedal pulses present - Neurological Exam Neurological exam: Alert, CN II-XII Intact, Normal Gait, Oriented x3, Reflexes Normal - Psychiatric Exam Psychiatric exam: Normal Affect, Normal Mood Discharge Plan - Discharge Medications Prescriptions: Cholecalciferol [Vitamin D 1000 IU] 2,000 iu PO DAILY #60 tab - Follow Up Plan Condition: FAIR Disposition: HOME/ ROUTINE Additional Instructions: [facility] Dr. 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
== END 2017-06-20 14:15 | disposition home or self-care (01) | DRG 891 ==
LOC: H.ER 14:38 → H.ERHOLD 17:23 → H.TEL 06-19 09:27 → OBSVTOIN 06-19 15:08
PROVIDERS: ADMIT Family Medicine Geriatric Medicine; ATTEND Family Medicine Geriatric Medicine
PROC: 3E0234Z Introduction of Serum, Toxoid and Vaccine into Muscle, Percutaneous Approach (ICD-10-PCS; principal; 2017-06-19)
DX: G43.109 Migraine with aura, not intractable, without status migrainosus (principal); F40.240 Claustrophobia; Z53.29 Procedure and treatment not carried out because of patient's decision for other reasons; R94.6 Abnormal results of thyroid function studies; Z23 Encounter for immunization; R73.03 Prediabetes

== ENCOUNTER 2017-07-07 15:00 | Emergency (ER) | payer OTHER ==
[2017-07-07 15:13] VITALS: BP 117/62; PULSE 65; RESP 16; TEMP 99.4; O2SAT 99
[2017-07-07] MEDS ORDERED: Absorbable Gelatin Sponge Size 12-7 TP STA (15:17)
--- NOTE | 2017-07-07 15:32 | ED PDOC ---
HPI: Skin/Bite Injury Time Seen by Provider: 07/07/17 15:13 Chief Complaint (Nursing): Abnormal Skin Integrity Chief Complaint (Provider): Laceration History Per: Patient Onset/Duration Of Symptoms: Mins Current Symptoms Are (Timing): Still Present Location Of Injury: Left: Hand Severity: Mild Additional History Per: Patient Additional Complaint(s): 46 y/o female who was opening a glass jar when it broke, sustaining a cut to the left palmar surface, that has not stopped bleeding. She denies any numbness or decreased ROM. Last Tetanus was within 4 years. Past Medical History Vital Signs: Last Vital Signs Temp 99.4 F 07/07/17 15:10 Pulse 65 07/07/17 15:10 Resp 16 07/07/17 15:10 BP 117/62 07/07/17 15:10 Pulse Ox 99 07/07/17 15:34 - Medical History PMH: Diabetes (borderline, not currently on medications) Denies: Chronic Kidney Disease - Surgical History Surgical History: - Family History Family History: States: Unknown Family Hx - Home Medications Home Medications: Ambulatory Orders Medication Instructions Recorded Savage-3 Fatty Acids [Savage-3] 2,000 mg PO BID 06/18/17 Cholecalciferol [Vitamin D 1000 IU] 2,000 iu PO DAILY #60 tab 06/20/17 - Allergies Allergies/Adverse Reactions: Allergies Allergy/AdvReac Type Severity Reaction Status Date / Time No Known Allergies Allergy Unverified 05/02/13 11:21 Review of Systems Skin: Positive for: Lesions Neurological: Negative for: Numbness Physical Exam - Physical Exam Appears: Positive for: Well, No Acute Distress Skin: Positive for: Warm, Dry. Negative for: Normal Color (1 cm triangle shaped avulsion left palmar surface. Bleeding present but is nonpulsetile.) Pulses-Radial (L): 2+ Extremity: Positive for: Normal ROM - ECG O2 Sat by Pulse Oximetry: 99 (RA) Pulse Ox Interpretation: Normal - Progress ED Course And Treament: Wound irrigated heavily with NS. Gelfoam applied over wound. Pressure dressing applied with hemostasis achieved. Medical Decision Making Medical Decision Making: Gelatin sponge placed against the wound for bleeding control. ~ Scribe Attestation: Documented by~Ellie Villanueva, acting as a scribe for SANDEEP Bassett. Provider Scribe Attestation: All medical record entries made by the Scribe were at my direction and personally dictated by me. I have reviewed the chart and agree that the record accurately reflects my personal performance of the history, physical exam, medical decision making, and the department course for this patient. I have also personally directed, reviewed, and agree with the discharge instructions and disposition. Disposition - Clinical Impression Clinical Impression: Skin avulsion - Disposition Referrals: Alice Li [Outside] Disposition: Routine/Home Disposition Time: 15:46 Condition: STABLE Instructions: Skin Avulsion (ED), Acute Wound Care (ED) Forms: [employer] (Dominican) Print Language: [place] CITIZEN
== END 2017-07-07 15:53 | disposition home or self-care (01) ==
LOC: H.ER 15:00
DX: S61.412A Laceration without foreign body of left hand, initial encounter (principal); W25.XXXA Contact with sharp glass, initial encounter; Y92.89 Other specified places as the place of occurrence of the external cause

== ENCOUNTER 2018-05-24 18:40 | Emergency (ER) | payer OTHER ==
[2018-05-24] MEDS ORDERED: Naproxen 500 MG TAB PO STA (19:42)
[2018-05-24] MEDS ORDERED: Naproxen 500 MG TAB PO ONE (19:46)
--- NOTE | 2018-05-24 20:46 | ED PDOC ---
HPI: Trauma/Fall - HPI Time Seen by Provider: 05/24/18 19:25 Chief Complaint (Nursing): Lower Extremity Problem/Injury Chief Complaint (Provider): Lower Extremity Problem/Injury History Per: Patient History/Exam Limitations: no limitations Onset/Duration Of Symptoms: Sudden Onset Injury Occurred (Timing): Just Before Arrival Additional Complaint(s): 47 year old female presents to ED with a complaint of left knee pain status post slip and fall at work. 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 She was able to ambulate shortly afterwards and denies taking any pain medication, icing area or other medical complaints. PMD: none provided Past Medical History Reviewed: Historical Data, Nursing Documentation, Vital Signs Vital Signs: Last Vital Signs Temp 98.8 F 05/24/18 21:32 Pulse 67 05/24/18 21:32 Resp 18 05/24/18 21:32 BP 136/76 05/24/18 21:32 Pulse Ox 98 05/24/18 22:11 - Medical History PMH: Diabetes (borderline, not currently on medications) Denies: Chronic Kidney Disease - Surgical History Surgical History: - Family History Family History: States: Unknown Family Hx - Social History Current smoker - smoking cessation education provided: No Alcohol: None Drugs: Denies - Home Medications Home Medications: Ambulatory Orders Medication Instructions Recorded Hastings-3 Fatty Acids [Hastings-3] 2,000 mg PO BID 06/18/17 Cholecalciferol [Vitamin D 1000 IU] 2,000 iu PO DAILY #60 tab 06/20/17 Naproxen [Naprosyn] 500 mg PO Q12 #14 tab 05/24/18 - Allergies Allergies/Adverse Reactions: Allergies Allergy/AdvReac Type Severity Reaction Status Date / Time No Known Allergies Allergy Unverified 05/02/13 11:21 Review of Systems ROS Statement: Except As Marked, All Systems Reviewed And Found Negative Musculoskeletal: Positive for: Leg Pain (left knee) Physical Exam - Reviewed Nursing Documentation Reviewed: Yes Vital Signs Reviewed: Yes - Physical Exam Appears: Positive for: No Acute Distress Extremity: Positive for: Tenderness (left knee mildly), Swelling (left knee mildly). Negative for: Deformity, Other (ecchymosis) Neurologic/Psych: Positive for: Alert (x3), Oriented. Negative for: Motor/ Sensory Deficits - ECG O2 Sat by Pulse Oximetry: 98 (RA) Pulse Ox Interpretation: Normal Medical Decision Making Medical Decision Making: Initial Impression: 47 year old female with left knee pain in setting of workplace injury. Initial Plan: * Urine * XR knee (left) * XR tibia fibula (left) * Naproxen Time: 1939 --XR of left knee and tibia fibula interpreted by provider: (-) fractures. Time: 1946 --Upon provider reevaluation, patient is medically stable and requires no further treatment in the ED at this time. Patient will be discharged home with left knee immobilizer. Counseling was provided and all questions were answered regarding diagnosis. There is agreement to discharge plan. Return if symptoms persist or worsen. Scribe Attestation: Documented by Mabel Moses, acting as a scribe for Cosmo Jewell MD. Provider Scribe Attestation: All medical record entries made by the Scribe were at my direction and personally dictated by me. I have reviewed the chart and agree that the record accurately reflects my personal performance of the history, physical exam, medical decision making, and the department course for this patient. I have also personally directed, reviewed, and agree with the discharge instructions and disposition. Disposition - Clinical Impression Clinical Impression: Strain of knee and leg, left - Disposition Disposition: Routine/Home Disposition Time: 20:30 Condition: STABLE Prescriptions: Naproxen [Naprosyn] 500 mg PO Q12 #14 tab Instructions: Lower Extremity Muscle Strain Forms: [employer] (Italian), [facility] ED School/Work Excuse Print Language: CITIZEN OF [place]
[2018-05-24 21:33] VITALS: BP 136/76; PULSE 67; RESP 18; TEMP 98.8
[2018-05-24 21:43] VITALS: O2SAT 98
--- NOTE | 2018-05-25 08:04 | RAD ---
Date of service: 05/24/2018 HISTORY: pain COMPARISON: No prior FINDINGS: BONES: Normal. No fracture. JOINTS: [id number] osteoarthritis per SOFT TISSUE: Normal. OTHER FINDINGS: None . IMPRESSION: No fracture.
--- NOTE | 2018-05-25 08:07 | RAD ---
Date of service: 05/24/2018 HISTORY: pain COMPARISON: No prior FINDINGS: BONES: Normal. No fracture. JOINTS: Normal. No osteoarthritis. SOFT TISSUE: Normal. OTHER FINDINGS: None . IMPRESSION: Normal Bone Xray.
== END 2018-05-24 21:35 | disposition home or self-care (01) ==
LOC: H.ER 18:40
DX: S83.92XA Sprain of unspecified site of left knee, initial encounter (principal); S86.112A Strain of other muscle(s) and tendon(s) of posterior muscle group at lower leg level, left leg, initial encounter; W01.0XXA Fall on same level from slipping, tripping and stumbling without subsequent striking against object, initial encounter; Y99.0 Civilian activity done for income or pay